=== PATIENT | female | born 1965 | race Caucasian/White ===

== ENCOUNTER 2018-01-13 13:32 | Emergency (ER) | payer MEDICARE, OTHER ==
[~2018-01-13] VITALS: Ht 152.4 cm; Wt 64.0 kg
[~2018-01-13 13:32] MED LIST: ALBU18HF2 INH; BUDE10.22 INH; FLUT16SP2 BOTHNARES; IPRA3AMP31 IH; LORA10TA61 PO; MAGN400C PO; PANT20TA3 PO; PRAM0.258 PO; ROPI2TAB29 PO
[2018-01-13] MEDS ORDERED: methylPREDNISolone sod succ 125mg/2ml vial IV ONE (13:45)
[2018-01-13] MEDS ORDERED: ipratropium/albuterol 3ml nebule NEB ONE (13:45)
[2018-01-13] MEDS: albuterol 2.5 MG/3 ML nebule CONTNEB PRN ×2 (14:01→14:02)
[2018-01-13 15:06] LABS: BASOPHILS % (AUTO) 0.3 % (0-1); EOSINOPHILS # (AUTO) 0.4 X10'3 (0-0.9); EOSINOPHILS % (AUTO) 2.7 % (0-6); HEMATOCRIT 47.5 % (35.0-45.0); HEMOGLOBIN 15.4 g/dl (12.0-16.0); LYMPHOCYTES # (AUTO) 2.7 X10'3 (1.1-4.8); LYMPHOCYTES % (AUTO) 20.2 % (21-51); MEAN CORPUSCULAR HEMOGLOBIN 28.9 PG (27.0-31.0); MEAN CORPUSCULAR HGB CONC 32.5 % (33.0-36.5); MEAN CORPUSCULAR VOLUME 88.7 FL (78-98); MEAN PLATELET VOLUME 7.9 FL (7.4-10.4); MONOCYTES # (AUTO) 0.7 X10'3 (0-0.9); NEUTROPHILS # (AUTO) 9.6 X10'3 (1.8-7.7); NEUTROPHILS % (AUTO) 71.8 % (42-75); PLATELET COUNT 340 X10'3 (140-440); RED BLOOD COUNT 5.35 X10'6 (4.20-5.60); RED CELL DISTRIBUTION WIDTH 14.8 % (11.5-14.5); WHITE BLOOD COUNT 13.3 X10'3 (4.5-11.0)
[2018-01-13 15:20] LABS: ALANINE AMINOTRANSFERASE 24 U/L (12-78); ALBUMIN 3.5 G/DL (3.4-5.0); ALKALINE PHOSPHATASE 104 IU/L (46-116); ANION GAP 11 (8-16); ASPARTATE AMINO TRANSFERASE 15 U/L (10-37); BILIRUBIN,TOTAL 0.6 MG/DL (0.1-1.0); BLOOD UREA NITROGEN 8 MG/DL (7-18); BUN/CREATININE RATIO 9.3 (6.6-38.0); CALCIUM 9.3 MG/DL (8.5-10.1); CHLORIDE 105 MMOL/L (99-107); CREATININE 0.86 MG/DL (0.40-0.90); GLUCOSE 103 MG/DL (70-104); POTASSIUM 3.7 MMOL/L (3.5-5.1); SODIUM 144 MMOL/L (135-145); TOTAL CARBON DIOXIDE 28.5 MMOL/L (24-32); eGFR 69 ML/MIN
[2018-01-13 15:27] VITALS: BP 142/77
[2018-01-13 15:27] LABS: PARTIAL THROMBOPLASTIN TIME 28 SECONDS (22-32); PROTHROMBIN TIME 10.1 SECONDS (9.0-12.0)
[2018-01-13] MEDS ORDERED: LEVO750T21 PO (15:34)
[2018-01-13] MEDS ORDERED: PRED20TA PO (15:34)
[2018-01-13] MEDS ORDERED: ALB0.5UD IH (15:34)
[2018-01-13] MEDS ORDERED: ALBU2.5V13 NEB (16:17)
== END 2018-01-13 16:20 | disposition home or self-care (01) ==
LOC: ER 13:33
DX: J44.1 Chronic obstructive pulmonary disease with (acute) exacerbation (principal); Z87.891 Personal history of nicotine dependence; Z88.8 Allergy status to other drugs, medicaments and biological substances; Z79.899 Other long term (current) drug therapy
CPT/HCPCS: 36415; 71045; 80053; 83880; 85025; 85610; 85730; 93005; 94644; 94760; 96374; 99285; J2930; 94640